=== PATIENT | female | born 1995 | race Caucasian/White ===

== ENCOUNTER 2021-07-22 17:19 | Emergency (ER) | payer SELFPAY ==
[2021-07-22 17:33] VITALS: BP 124/75; PULSE 76; RESP 16; TEMP 36.5; O2SAT 100
--- NOTE | 2021-07-22 17:53 | ED.ANIMALBIT ---
HPI - Animal Bite General Chief Complaint: Animal Bite Stated Complaint: Cat Bite Time Seen by Provider: 07/22/21 17:53 Source: patient and RN notes reviewed Mode of arrival: ambulatory Limitations: no limitations History of Present Illness HPI narrative: 25-year-old female without significant medical history presents with concern for cat bite. Reports puncture wound between digits 1 and 2. Reports it happened yesterday. Reports that since become tender, red, warm, tight movement in digits 1 and 2. She denies fever, bodies, chills, sweats, malaise. Denies intervention. Reports she is taking doxycycline 50 mg daily for acne for 3 months, she does started yesterday. MD complaint: animal bite Related Data Home Medications Medication Instructions Recorded Confirmed doxycycline monohydrate 1 tablet PO BID 07/22/21 07/22/21 Allergies Allergy/AdvReac Type Severity Reaction Status Date / Time No Known Allergies Allergy Verified 07/22/21 17:41 Review of Systems Review of Systems: CONSTITUTIONAL: Denies malaise, chills, sweats, or fever. CARDIOVASCULAR: Denies chest pain, palpitations, or edema. RESPIRATORY: Denies cough or dyspnea. SKIN: Reports puncture wound that is tender, swollen, red, warm between digits 1 and 2 of the right hand. MUSCULOSKELETAL: Denies muscle skeletal pain or myalgia. Reports tight movement in digits 1 and 2 of the right hand All systems reviewed & are unremarkable except as noted in HPI and below PMFSH Comments At time of signature, agree with nursing past medical, surgical, social and family history. There is no relevant family history pertinent to the presenting complaint Exam Narrative: GENERAL: Well-appearing, well-nourished, and in no acute distress. HEAD: Normocephalic EYES: PERRLA, conjunctivae clear NECK: Supple. CHEST: Speaks in full sentences. No respiratory distress. HEART: Regular rate and rhythm. Normal and equal peripheral pulses. EXTREMITIES: First digit of right hand has normal strength and sensation. 5/5 strength with digit flexion, extension. Range of motion normal. No clubbing, cyanosis, or edema noted. No musculoskeletal tenderness tenderness. Normal digital cascade with flexion of fingers, median, ulnar and radial nerve intact. Normal sensation of each side of finger. Can perform 'okay' sign, 'cross over finger test of index and middle fingers' and 'thumbs up' sign. No scissoring. Normal thumb opposition. Good capillary refill and radial pulse. Distal capillary refill less than 3 seconds. SKIN: Warn, dry, intact, pink. No rash. Erythematous, mildly edematous, tender puncture wound between digits 1 and 2 NEURO: Alert and oriented x3. PSYCH: Normal mood and affect Course Course Emergency Course: Patient is aware of diagnosis, understands and agrees to treatment plan. Anticipatory guidance given. Patient agrees to follow-up as directed and is aware of reasons to seek care at the emergency department. Portions of this record may have been created with voice recognition software Vital Signs Vital signs: Vital Signs Temperature 97.7 F 07/22/21 17:33 Pulse Rate 76 07/22/21 17:33 Respiratory Rate 16 07/22/21 17:33 Blood Pressure 124/75 07/22/21 17:33 Pulse Oximetry 100 07/22/21 17:33 Temperature 97.7 F 07/22/21 17:33 Pulse Rate 76 07/22/21 17:33 Respiratory Rate 16 07/22/21 17:33 Blood Pressure 124/75 07/22/21 17:33 Pulse Oximetry 100 07/22/21 17:33 Reviewed. MDM - Animal Bite MDM Narrative Medical decision making narrative: Exam findings show no acute concerns or changes; patient is non-toxic appearing and is in no distress. Patient is appropriate for outpatient treatment and follow-up. Critical Care Time Critical Care Time Critical Care Time: No Discharge Plan Discharge Clinical Impression: Cat bite Qualifiers: Encounter type: initial encounter Qualified Code(s): W55.01XA - Bitten by cat, initial encounter Patient Dispo
== END 2021-07-22 18:00 | disposition home or self-care (01) ==
PROVIDERS: Emergency Provider Nurse Practitioner
DX: S61.431A Puncture wound without foreign body of right hand, initial encounter (principal); W55.09XA Other contact with cat, initial encounter
CPT/HCPCS: 99203; G0463

== ENCOUNTER 2021-08-12 16:37 | Emergency (ER) | payer SELFPAY ==
[2021-08-12 16:41] VITALS: BP 140/77; PULSE 87; RESP 17; TEMP 36.6; O2SAT 99
[2021-08-12 19:21] VITALS: BP 115/72; PULSE 74; RESP 18; TEMP 37.1; O2SAT 100
--- NOTE | 2021-08-12 19:51 | ED.ANIMALBIT ---
HPI - Animal Bite General Chief Complaint: Animal Bite Stated Complaint: CAT BITE, WANTS RABIES VACCINE Time Seen by Provider: 08/12/21 19:33 Source: patient Mode of arrival: ambulatory Limitations: no limitations History of Present Illness HPI narrative: Patient is a 25-year-old female here for rabies shot and a tetanus shot. Patient states that she was bitten by a cat on her right hand approximately 3 weeks ago, was placed on antibiotics given in urgent care, hand healed well, claims that she was not given a tetanus shot, last time she had one was more than 10 years ago. The cat which was a stray that she picked up a few months ago, but was vaccinated a week prior to the bite, was deteriorating and so she was advised by the costume seamstress that she might need a rabies shot. Patient has no symptoms at this time. Related Data Home Medications Medication Instructions Recorded Confirmed doxycycline monohydrate 1 tablet PO BID 07/22/21 07/22/21 Allergies Allergy/AdvReac Type Severity Reaction Status Date / Time No Known Allergies Allergy Verified 08/12/21 19:28 Review of Systems Review of Systems: All systems reviewed & are unremarkable except as noted in HPI and below PMFSH Comments Past medical history: None Family history: Noncontributory Social history non-smoker no EtOH or drug use Exam Const: General: cooperative, healthy appearing, comfortable, no acute distress, well developed, alert and awake; No confusion Orientation/consciousness: oriented to person, oriented to place, oriented to time, patient oriented x3 and No confusion Limitations: no limitations HENMT: Head: normal to inspection, normocephalic and atraumatic Ears: hearing grossly normal bilaterally, TM normal on the right and TM normal on the left General nose exam: Normal external nose present, Normal nares present and No nasal discharge present Face and sinus: normal facial exam Mouth: Yes Normal oral and palatal mucosa present, Yes lip normal, Yes tongue normal and Yes oropharynx normal Throat: posterior oropharynx normal, tonsils normal and uvula midline Eyes: General: appearance normal, both eyes and all related structures Pupils: Equal, round and reactive pupils present EOM: EOMs intact bilaterally Neck: Neck: normal visual inspection, full ROM, no lymphadenopathy and no meningeal signs Chest: Chest palpation & inspection: normal inspection of the chest Resp: Effort & Inspection: normal respiratory effort, able to speak in complete sentences, no respiratory distress and not tachypneic Auscultation: clear to auscultation bilaterally, no crackles, no rales, no rhonchi and no wheezes Cardio: Rate: regular rate Rhythm: regular rhythm GI: Inspection: normal to inspection GI Palp: No abdominal tenderness, Yes Soft to palpation, No Tenderness to palpation present (GI), No Guarding due to palpation present (GI), No Rigid due to palpation and No Rebound tenderness present Auscultation: normal bowel sounds : General: Yes no CVA tenderness Back/Spine/Pelvis: Back: no CVA tenderness Skin: General skin exam: normal color, no rashes or lesions noted, elasticity normal and turgor normal Neuro: General: oriented to person, oriented to place, oriented to time, patient oriented x3, tone normal, moves all extremities, Normal light touch and pain sensation, no meningeal signs, no focal motor deficits, CN's II-XI intact bilaterally and No confusion Cranial nerves: Yes Equal, round and reactive pupils present Speech: No Abnormal speech present Sensory Exam: No Sensory deficit (Neuro) Extrem: General: normal to inspection, full ROM and capillary refill normal Psych: Appearance: grossly normal and well kempt Mental Status: mental status grossly normal Speech and movement: Normal speech and movement present Affect: normal affect Attitude: cooperative Thought process: Normal thought process present Thought content: Yes Normal thought content present
[2021-08-12] MEDS: RABIES VACCINE (RABAVERT) 2.5 UNITS VIAL IM (20:37)
[2021-08-12] MEDS: TETANUS,DIPHTHERIA,AC PERTUSSIS ADULT (0.5 ML) BOOSTRIX IM (20:37)
[2021-08-12 21:39] VITALS: BP 114/69; PULSE 74; RESP 18; TEMP 37.2; O2SAT 100
== END 2021-08-12 21:41 | disposition home or self-care (01) ==
PROVIDERS: Emergency Provider Emergency Medicine
DX: S61.451A Open bite of right hand, initial encounter (principal); Z29.14 Encounter for prophylactic rabies immune globulin; Z23 Encounter for immunization; W55.01XA Bitten by cat, initial encounter
CPT/HCPCS: 90471; 90675; 90715; 96372; 99283

== ENCOUNTER 2024-08-08 01:21 | Emergency (ER) | payer OTHER, SELFPAY ==
--- NOTE | ~2024-08-08 | XR_ITS ---
EXAMINATION: XR chest 1V portable DATE: 08/08/2024 03:53 INDICATION: Cough. TECHNIQUE: A single frontal view of the chest was obtained. COMPARISON: None. FINDINGS: There is no pneumonia, pleural effusion, or pneumothorax. The heart size is normal. IMPRESSION: 1. No acute cardiopulmonary disease. Reviewed, dictated and finalized at location A.
[2024-08-08 01:25] VITALS: BP 130/68; PULSE 100; RESP 22; TEMP 36.9; O2SAT 99
--- NOTE | 2024-08-08 02:05 | ECG_ITS ---
Test Date: 2024-08-08 03:04:35 Measurements Intervals Parker Rate: 86 P: 13 VA: 156 QRS: -1 QRSD: 106 T: 30 QT: 362 QTc: 433 Interpretive Statements SINUS RHYTHM VOLTAGE CRITERIA FOR LEFT VENTRICULAR HYPERTROPHY MINIMAL Q WAVES- HIGH LATERAL LEADS NONSPECIFIC T-WAVE ABNORMALITY- ANT/INF LEADS BASELINE ARTIFACT- I, II, III, AVR, AVL, AVF BORDERLINE ECG No previous ECG available for comparison Electronically Signed On 08-08-2024 08:13:16 CDT by Ron Rodriguez D.O.
--- NOTE | 2024-08-08 02:07 | ED.URI ---
HPI - URI/Sore Throat General Chief Complaint: Upper Respiratory Infection <Laura Chamorro PA-C - Last Filed: 08/08/24 02:55> Stated Complaint: covid/fever <Laura Chamorro PA-C - Last Filed: 08/08/24 02:55> Time Seen by Provider: 08/08/24 02:02 <Laura Chamorro PA-C - Last Filed: 08/08/24 02:55> History of Present Illness HPI Narrative: 28-year-old female presents to the emergency department for cough, congestion, sore throat, shortness of breath and generalized malaise for 4 days. Patient states that the onset of symptoms she took an at-home COVID test and was found to be positive. She states she was feeling somewhat better yesterday and then today began feeling significantly worse. She states she has had a fever has been taking Tylenol ibuprofen without much improvement. States she took 400 mg of ibuprofen and 650 mg of Tylenol around 7:00 p.m. and is afebrile upon arrival. <Laura Chamorro PA-C - Last Filed: 08/08/24 02:55> Related Data Home Medications: Home Medications Medication Instructions Recorded Confirmed bupropion HCl 300 mg 24 hr tablet, 300 mg PO QAM 04/01/23 04/01/23 extended release (Wellbutrin XL) <Laura Chamorro PA-C - Last Filed: 08/08/24 02:55> Allergies/Adverse Reactions: Allergies Allergy/AdvReac Type Severity Reaction Status Date / Time No Known Allergies Allergy Verified 04/01/23 09:50 <Laura Chamorro PA-C - Last Filed: 08/08/24 02:55> Review of Systems Review of Systems: All systems reviewed & are unremarkable except as noted in HPI and below <Laura Chamorro PA-C - Last Filed: 08/08/24 02:55> PMFSH Past Medical History Medical History: Medical History History of bruising easily <Laura Chamorro PA-C - Last Filed: 09/21/24 02:55> Surgical History Surgical History: Surgical History History of dental surgery <Laura Chamorro PA-C - Last Filed: 08/08/24 02:55> Family History Family History: Family History Other Arthritis <Laura Chamorro PA-C - Last Filed: 08/08/24 02:55> Social History Social History: Social History Smoking status: Never smoker <Laura Chamorro PA-C - Last Filed: 08/08/24 02:55> Exam Narrative: GENERAL: Ill appearing, well-nourished, and in no acute distress. HEAD: Normocephalic, atraumatic. EYES: PERRLA and EOMI. ENT: Nares clear, no rhinorrhea or epistaxis. Mucous membranes moist. Posterior pharynx with mild erythema, no tonsillar hypertrophy or exudates. Uvula is midline. Bilateral cerumen impaction NECK: Supple. CHEST: Clear to auscultation. No respiratory distress. HEART: Regular rate and rhythm. No murmur heard. Normal peripheral pulses. ABDOMEN: Soft, nontender, nondistended, normal active bowel sounds. EXTREMITIES: Normal range of motion. No edema. SKIN: Warm, dry, no rash. NEURO: No focal deficits. Alert and oriented x3 <Laura Chamorro PA-C - Last Filed: 08/08/24 02:55> Course Vital Signs Vital signs: Vital Signs Temperature 36.9 C 08/08/24 01:25 Pulse Rate 100 08/08/24 01:25 Respiratory Rate 22 H 08/08/24 01:25 Blood Pressure 130/68 08/08/24 01:25 Pulse Oximetry 99 08/08/24 01:25 Oxygen Delivery Room Air 08/08/24 01:25 Temperature 36.9 C 08/08/24 01:25 Pulse Rate 100 08/08/24 01:25 Respiratory Rate 22 H 08/08/24 01:25 Blood Pressure 130/68 08/08/24 01:25 Pulse Oximetry 99 08/08/24 01:25 Oxygen Delivery Room Air 08/08/24 01:25 <Laura Chamorro PA-C - Last Filed: 08/08/24 02:55> Vital Signs Temperature 36.9 C 08/08/24 01:25 Pulse Rate 100 08/08/24 01:25 Respiratory Rate 22 H 08/08/24 01:25 Blood Pressure 130/68 08/08/24 0
[2024-08-08] MEDS: BENZONATATE 100 MG CAPSULE 200 MG PO (02:50)
[2024-08-08] MEDS: SODIUM CHLORIDE 0.9% IV 1,000 ML 999 ML IV CONT (02:51)
[2024-08-08 02:58] LABS: Basophils Percent Auto 0.4 % (0.2-1.2); Eosinophils Percent Auto 0.4 % (0-4.4); Hematocrit 38.9 % (37.0-47.0); Hemoglobin 13.1 g/dL (12.0-15.0); Immature Granulocyte Absolute 0.02 K/mm3 (0.00-0.031); Immature Granulocyte Percent A 0.2 % (0-0.5); Lymphocytes Absolute Auto 1.21 K/mm3 (0.9-3.2); Lymphocytes Percent Auto 14.2 % (18.3-44.2); Mean Corpuscular HGB Conc 33.7 g/dl (32-36); Mean Corpuscular Hemoglobin 29.8 pg (26-34); Mean Corpuscular Volume 88.4 fl (80-100); Mean Platelet Volume 9.6 fl (7.4-10.4); Monocytes Absolute Auto 1.2 K/mm3 (0.1-0.6); Monocytes Percent Auto 13.8 % (2.6-8.5); Neutrophils Absolute Auto 6.1 K/mm3 (1.3-6.7); Platelet Count Result 270 k/mm3 (150-375); Red Cell Distribution Width 12.7 % (11.5-14.5); White Blood Count 8.5 K/mm3 (4.5-10.0)
[2024-08-08 03:04] VITALS: BP 131/74; PULSE 100; RESP 14; TEMP 36.7; O2SAT 97; O2SAT 98
[2024-08-08 03:05] LABS: Add Urine Microscopic? YES; Appearance Urine Clear (Clear); Bacteria Urine None Seen /hpf; Bilirubin Urine Negative (Negative); Blood Urine Non-Hemolyzed Trace (Negative); Color Urine Yellow (Yellow); Glucose Urine UA Negative (Negative); Ketones Urine Negative (Negative); Leukocyte Esterase Ur Trace LEU/UL (Negative); Nitrate Urine Negative (Negative); Non Pathogenic Casts 0-2; Protein Urine Negative (Negative); Specific Grav Ur 1.017 (1.001-1.035); Squamous Epithelial Cell Urine None Seen /hpf (Few); WBC Urine 0-5 /hpf (0-3); pH Urine 7.5 (5.0-9.0)
[2024-08-08 03:19] LABS: Alanine Aminotransferase 15 U/L (6-35); Albumin Level 4.2 g/dL (3.5-5.1); Alkaline Phosphatase 49 U/L (38-126); Anion Gap 10 mmol/L (4-12); Aspartate Amino Transferase 21 U/L (14-36); Bilirubin,Total 0.4 mg/dL (0.2-1.3); Blood Urea Nitrogen 7 mg/dL (7-17); Calcium 8.8 mg/dL (8.4-10.2); Carbon Dioxide 26 mmol/L (22-30); Chloride 98 mmol/L (98-107); Estimated CRCL calculation 125 ml/min; Estimated Glomerular Filt Rate > 60; Glucose 107 mg/dL (65-110); Potassium 3.7 mmol/L (3.4-5.0); Sodium 134 mmol/L (137-145)
[2024-08-08 03:23] LABS: Strep Group A RT-PCR NOT DETECTED (Negative)
[2024-08-08 03:49] LABS: Monoscreen Negative (Negative); Negative Monotest Control Negative (Negative); Positive Monotest Control Positive (Positive)
[2024-08-08 04:50] VITALS: BP 130/87; PULSE 99; RESP 19; O2SAT 97
== END 2024-08-08 04:50 | disposition home or self-care (01) ==
PROVIDERS: Physician Assistant; Emergency Provider Emergency Medicine
DX: U07.1 COVID-19 (principal); J06.9 Acute upper respiratory infection, unspecified; R94.31 Abnormal electrocardiogram [ECG] [EKG]
CPT/HCPCS: 36415; 71045; 80053; 81001; 85025; 86308; 87651; 93005; 96360; 99283; A9270; J7030